=== PATIENT | male | born 1945 | race Caucasian/White ===

== ENCOUNTER 2024-07-09 07:38 | Emergency (ER) | payer MEDICARE ==
[~2024-07-09] VITALS: Ht 175.3 cm; Wt 84.0 kg
[2024-07-09] MEDS ORDERED: LOSA50TA5 PO (08:11)
[2024-07-09] MEDS ORDERED: MELO15TA28 PO (08:11)
[2024-07-09] MEDS: PROPARACAINE 0.5% OPHTH SOL 15ML OD ONE (09:56)
[2024-07-09] MEDS: FLUORESCEIN OPHTH 1MG STRIP OD ONE (09:56)
[2024-07-09 10:07] VITALS: BP 146/78; TEMP 97; O2SAT 95
== END 2024-07-09 10:15 | disposition home or self-care (01) ==
LOC: M ED 07:38
DX: H11.31 Conjunctival hemorrhage, right eye (principal); I10 Essential (primary) hypertension; E78.5 Hyperlipidemia, unspecified; Z79.899 Other long term (current) drug therapy

== ENCOUNTER 2025-01-10 04:11 | Emergency (ER) | payer MEDICARE ==
[~2025-01-10] VITALS: Ht 175.3 cm; Wt 88.6 kg
[~2025-01-10 04:11] MED LIST: LOSA50TA5 PO; MELO15TA28 PO
[2025-01-10] MEDS: MAGNESIUM CITRATE 300ML BTL PO ONE (07:47)
[2025-01-10 09:18] VITALS: BP 123/68; TEMP 96.8; O2SAT 96
== END 2025-01-10 09:29 | disposition home or self-care (01) ==
LOC: M ED 04:11
DX: K59.00 Constipation, unspecified (principal); I10 Essential (primary) hypertension; Z79.899 Other long term (current) drug therapy

== ENCOUNTER → 2025-01-11 | Outpatient (REF) | payer MEDICARE | LOC: M LAB REF 17:06 | PROVIDERS: ATTEND Physician Assistant Medical | DX: N39.0 Urinary tract infection, site not specified (principal) ==